=== PATIENT | male | born 1965 | race Caucasian/White ===

== ENCOUNTER 2016-04-05 13:25 | Day surgery (SDC) | payer OTHER ==
[~2016-04-05] VITALS: Ht 157.5 cm; Wt 79.4 kg
[~2016-04-05 13:25] MED LIST: ALBUTEROL SULF8.5 GM IH; CARAFATE100 MG/ML PO; COLCHICINE0.6 M1 PO; COMPAZINE10 MG PO; DICYCLOMINE HCL20 MG PO; ELAVIL25 MG PO; FLOVENT 11120 INHALA IH; FLUOXETINE HCL40 MG PO; GABAPENTIN800 MG PO; LYRICA100 MG PO; MOTRIN600 MG PO; NEURONTIN800 MG PO; OMEPRAZOLE20 MG PO; OMEPRAZOLE40 M1 PO; PEPCID40 MG PO; PRAVACHOL20 MG PO; PREVACID30 MG PO; PRILOSEC20 MG PO; ROXICODONE5 MG PO; SERTRALINE HCL100 MG PO; STRATTERA100 MG PO; STRATTERA40 MG PO; STRATTERA80 MG PO; TOPAMAX100 MG PO; TOPAMAX50 MG PO; TOPIRAMATE50 MG PO; TRAZODONE HCL100 MG PO; VYVANSE30 MG PO; VYVANSE40 MG PO; ZANTAC150 MG PO; ZOFRAN4 MG PO; ZOLOFT100 MG PO
[2016-04-06] MEDS ORDERED: LYRICA75 MG PO (09:42)
[2016-04-06] MEDS ORDERED: EXCEDRIN MIGRA1 EAC3 PO (09:53)
== END 2016-04-05 15:27 | disposition home or self-care (01) ==
LOC: PAIN 13:25 → SDC 14:15 → PAIN 14:15
PROC: 3E0T33Z Introduction of Anti-inflammatory into Peripheral Nerves and Plexi, Percutaneous Approach (ICD-10-PCS; principal; 2016-04-05)
PROC: 3E0T3BZ Introduction of Anesthetic Agent into Peripheral Nerves and Plexi, Percutaneous Approach (ICD-10-PCS; principal; 2016-04-05)
DX: M47.892 Other spondylosis, cervical region (principal); M50.00 Cervical disc disorder with myelopathy, unspecified cervical region; M79.1 Myalgia; E78.5 Hyperlipidemia, unspecified; J45.909 Unspecified asthma, uncomplicated; M51.9 Unspecified thoracic, thoracolumbar and lumbosacral intervertebral disc disorder
CPT/HCPCS: J1030; J2250; J3010; S0020

== ENCOUNTER 2016-04-12 11:09 | Day surgery (SDC) | payer OTHER ==
[~2016-04-12] VITALS: Ht 185.4 cm; Wt 102.5 kg
[~2016-04-12 11:09] MED LIST changes: +EXCEDRIN MIGRA1 EAC3 PO; +LYRICA75 MG PO
[2016-04-12 12:25] LABS: BARBITUATES QUANT VALUE 0 NG/ML; BENZODIAZEPINES QUANT VALUE 0 NG/ML; BENZODIAZEPINES, URINE SCREEN Negative (200 ng/mL); MARIJUANA QUANT VALUE 0 NG/ML; OPIATES QUANTITATIVE VALUE 0 NG/ML; PHENCYCLIDINE QUANT VALUE 0 NG/ML
== END 2016-04-12 13:00 | disposition home or self-care (01) ==
LOC: PAIN 11:09 → SDC 14:15
PROVIDERS: Anesthesiology Pain Medicine
DX: M47.812 Spondylosis without myelopathy or radiculopathy, cervical region (principal); M54.2 Cervicalgia; F41.9 Anxiety disorder, unspecified; M12.88 Other specific arthropathies, not elsewhere classified, other specified site; M48.02 Spinal stenosis, cervical region; R51 Headache; G47.30 Sleep apnea, unspecified; F19.90 Other psychoactive substance use, unspecified, uncomplicated
CPT/HCPCS: J1030; J2250; J3010; S0020

== ENCOUNTER 2016-08-16 10:39 | Day surgery (SDC) | payer OTHER ==
[~2016-08-16] VITALS: Ht 177.8 cm; Wt 79.4 kg
[2016-08-16] MEDS ORDERED: VYVANSE70 MG PO (11:19)
== END 2016-08-16 12:28 | disposition home or self-care (01) ==
LOC: PAIN 10:39 → SDC 11:00 → PAIN 11:00
DX: M47.12 Other spondylosis with myelopathy, cervical region (principal); M54.2 Cervicalgia; M79.1 Myalgia; M51.9 Unspecified thoracic, thoracolumbar and lumbosacral intervertebral disc disorder; J45.909 Unspecified asthma, uncomplicated; K21.9 Gastro-esophageal reflux disease without esophagitis; M54.5 Low back pain; G89.29 Other chronic pain; M48.02 Spinal stenosis, cervical region; E78.5 Hyperlipidemia, unspecified
CPT/HCPCS: J1030; J2250; J3010; S0020

== ENCOUNTER 2016-08-31 16:01 | Emergency (ER) | payer OTHER ==
[~2016-08-31] VITALS: Ht 177.8 cm; Wt 77.5 kg
[~2016-08-31 16:01] MED LIST changes: +VYVANSE70 MG PO
[2016-08-31 17:31] LABS: HEMATOCRIT 42.8 % (38.0-50.0); MCH 31.1 PG (29.0-34.0); MCHC 33.6 G/DL (30.0-36.0); MCV 92.4 FL (86-99); MEAN PLAT.VOLUME 8.3 uM^3 (9.0-12.4); PLATELET COUNT 256 K/uL (156-360); RBC DIS.WIDTH-CV 12.3 % (11.8-14.6); RBC DIS.WIDTH-SD 41.9 % (39-53); RED BLOOD COUNT 4.63 M/uL (4.00-5.50); WHITE BLOOD COUNT 5.6 K/uL (4.1-10.2)
[2016-08-31 17:40] LABS: CHLORIDE 109 mEq/L (99-109); POTASSIUM 3.8 mEq/L (3.7-5.4); SODIUM 141 mEq/L (136-147)
[2016-08-31 17:42] LABS: GLUCOSE 77 mg/dL (70-99)
[2016-08-31 17:43] LABS: ANION GAP 8 MEQ/L (2-14)
[2016-08-31 17:46] LABS: GFR ESTIMATE (CALCULATED) > 59 mL/min/; UREA NITROGEN (BUN) 18 mg/dL (9-23)
[2016-08-31 19:48] VITALS: BP 125/77
== END 2016-08-31 19:51 | disposition home or self-care (01) ==
LOC: EME 16:01
PROVIDERS: Physician Assistant
DX: R42 Dizziness and giddiness (principal); R00.1 Bradycardia, unspecified; R51 Headache; J45.909 Unspecified asthma, uncomplicated; K21.9 Gastro-esophageal reflux disease without esophagitis; Z87.19 Personal history of other diseases of the digestive system; G89.29 Other chronic pain; Z86.19 Personal history of other infectious and parasitic diseases
CPT/HCPCS: 70450; 80048; 85027; 93005; 99281; 99285

== ENCOUNTER 2017-03-11 11:16 | Inpatient (IN) | payer OTHER ==
[~2017-03-11] VITALS: Ht 177.8 cm; Wt 70.4 kg
[~2017-03-11 11:16] MED LIST changes: +LYRICA200 MG PO; -LYRICA75 MG PO; +WELLBUTRIN SR150 MG PO
[2017-03-11 12:17] LABS: EOSINOPHIL (%) 1.2 % (0-5); EOSINOPHIL COUNT 0.1 K/uL (0-0.3); HEMATOCRIT 46.6 % (38.0-50.0); IMMATURE GRANULOCYTE (%) 0.3 % (0.0-0.7); INSTRUMENT ABS NEUTROPHIL CT 4.9 K/uL; LYMPHOCYTE COUNT 1.4 K/uL (1.0-2.8); MCHC 32.8 G/DL (30.0-36.0); MCV 91.4 FL (86-99); MEAN PLAT.VOLUME 8.3 uM^3 (9.0-12.4); MONOCYTE (%) 5.9 % (3-12); MONOCYTE COUNT 0.4 K/uL (0-0.8); NEUTROPHIL (%) 71.4 % (45-76); NEUTROPHIL COUNT 4.9 K/uL (1.8-6.4); PLATELET COUNT 347 K/uL (156-360); RBC DIS.WIDTH-CV 12.4 % (11.8-14.6); RBC DIS.WIDTH-SD 41.4 % (39-53); WHITE BLOOD COUNT 6.8 K/uL (4.1-10.2)
[2017-03-11 12:25] LABS: CHLORIDE 107 mEq/L (99-109); POTASSIUM 3.8 mEq/L (3.7-5.4); SODIUM 139 mEq/L (136-147)
[2017-03-11 12:27] LABS: GLUCOSE 107 mg/dL (70-99)
[2017-03-11 12:28] LABS: ANION GAP 8 MEQ/L (2-14)
[2017-03-11 12:30] LABS: GFR ESTIMATE (CALCULATED) > 59 mL/min/ (58.99-99999); SERUM ETHYL ALCOHOL < 10 mg/dL
[2017-03-11 12:32] LABS: UREA NITROGEN (BUN) 15 mg/dL (9-23)
[2017-03-11 12:34] LABS: SALICYLATE < 5.0 MG/DL (15-30)
[2017-03-11] MEDS ORDERED: WELLBUTRIN XL150 MG PO (13:35)
[2017-03-11] MEDS ORDERED: SINGULAIR10 MG PO (13:37)
[2017-03-11 14:14] LABS: AMPHETAMINE PRESUMPTIVE POSITIVE (500 ng/mL); BARBITURATES PRESUMPTIVE POSITIVE (200 ng/mL); BENZODIAZEPINES NEGATIVE (150 ng/mL); COCAINE PRESUMPTIVE POSITIVE (150 ng/mL); INTERNAL CONTROLS VALID? YES; METHADONE NEGATIVE (200 ng/mL); METHAMPHETAMINE NEGATIVE (500 ng/mL); OPIATES (MORPHINE) PRESUMPTIVE POSITIVE (100 ng/mL); OXYCODONE NEGATIVE (100 ng/mL); PHENCYCLIDINE NEGATIVE (25 ng/mL); PROPOXYPHENE NEGATIVE (300 ng/mL); THC CANNABINOIDS PRESUMPTIVE POSITIVE (50 ng/mL); TRICYCLIC ANTIDEPRESSANTS NEGATIVE (300 ng/mL)
[2017-03-11 14:15] LABS: ADD MEDTOX COMMENT Y
[2017-03-11 17:30] VITALS: BP 122/74
[2017-03-12 07:57] VITALS: BP 110/57
[2017-03-13 08:07] VITALS: BP 114/64
== END 2017-03-13 13:57 | disposition home or self-care (01) | DRG 897 ==
LOC: EME 11:16 → 1WEST 13:17 → EDOF 13:17 → ENRESERV 14:16 → 1WEST 17:20
PROVIDERS: Emergency Medicine
DX: F14.24 Cocaine dependence with cocaine-induced mood disorder (principal); F11.19 Opioid abuse with unspecified opioid-induced disorder; R45.851 Suicidal ideations; J45.909 Unspecified asthma, uncomplicated; K21.9 Gastro-esophageal reflux disease without esophagitis; B19.20 Unspecified viral hepatitis C without hepatic coma; G43.909 Migraine, unspecified, not intractable, without status migrainosus; G62.9 Polyneuropathy, unspecified; Z87.11 Personal history of peptic ulcer disease
CPT/HCPCS: 80048; 84999; 85025; 90839; 94760; 97150 GO; 97165 GO; 99202; 99281; 99284; G0480